=== PATIENT | female | born 1985 | race Caucasian/White ===

== ENCOUNTER 2022-12-04 12:35 | Emergency (ER) | payer MEDICAID ==
[~2022-12-04] VITALS: Ht 167.6 cm; Wt 83.6 kg
[2022-12-04 12:49] VITALS: BP 125/94
[2022-12-04] MEDS ORDERED: CHLO25CA10 PO (14:28)
== END 2022-12-04 14:47 | disposition home or self-care (01) ==
LOC: ER 12:36
DX: F10.10 Alcohol abuse, uncomplicated (principal); F17.200 Nicotine dependence, unspecified, uncomplicated; Z88.6 Allergy status to analgesic agent; Z91.040 Latex allergy status; Y90.9 Presence of alcohol in blood, level not specified
CPT/HCPCS: 99283